=== PATIENT | female | born 1935 | race Caucasian/White ===

== ENCOUNTER 2022-07-04 08:44 | Day surgery (SDC) | payer OTHER, MEDICARE ==
[2022-07-04] MEDS ORDERED: ZOLEDRONIC ACID/MAN/WATER 5 MG/100 ML INFUS..BTL IVPB ONE (10:00)
[2022-07-04 14:31] VITALS: RESP 18; TEMP 97.9
[2022-07-04 15:06] VITALS: BP 130/69; PULSE 57
== END 2022-07-04 11:00 | disposition home or self-care (01) ==
LOC: JERBED 08:44 → JINFUSION 08:44 → J7W 08:48 → JINFUSION 11:00
PROVIDERS: ATTEND Family Medicine
PROC: 3E033GC Introduction of Other Therapeutic Substance into Peripheral Vein, Percutaneous Approach (ICD-10-PCS; principal; 2022-07-04)
DX: M81.8 Other osteoporosis without current pathological fracture (principal)
CPT/HCPCS: 96365; J3489

== ENCOUNTER 2023-06-21 15:36 | Emergency (ER) | payer OTHER, MEDICARE ==
[2023-06-21 15:54] VITALS: BP 182/90; PULSE 62; RESP 18; TEMP 98; BMI 23.5
[2023-06-21] MEDS ORDERED: SODIUM CHLORIDE 1,000 ML IV ONE (16:22)
[2023-06-21] MEDS ORDERED: ONDANSETRON 4 MG/2 ML VIAL IVPB ONE (16:22)
[2023-06-21] MEDS ORDERED: ONDANSETRON 4 MG/2 ML VIAL ONE (16:36)
[2023-06-21 17:12] LABS: HEMATOCRIT 40.8 % (32.4-45.2); HEMOGLOBIN 14.1 G/dL (10.7-15.3); MCH 32.3 pg (25.7-33.7); MCHC 34.5 g/dl (32.0-36.0); MEAN CELL VOLUME 93.6 fl (80-96); MEAN PLT VOLUME 8.4 fl (7.5-11.1); PLATELET COUNT 152.9 10^3/uL (134-434); RBC 4.36 10^6/uL (3.60-5.2); WHITE BLOOD COUNT 4.2 10^3/uL (4.0-10.8)
[2023-06-21 17:33] LABS: ALBUMIN 4.1 g/dl (3.4-5.0); BILIRUBIN,TOTAL 0.6 mg/dl (0.2-1); CALCIUM 8.8 mg/dl (8.5-10.1); CREATININE 0.7 mg/dl (0.6-1.3); TOT PROT 6.7 g/dl (6.4-8.2)
[2023-06-21 18:16] LABS: PLATELET ESTIMATE ADEQUATE
== END 2023-06-21 18:35 | disposition home or self-care (01) ==
LOC: FER 15:36
PROC: 3E033GC Introduction of Other Therapeutic Substance into Peripheral Vein, Percutaneous Approach (ICD-10-PCS; principal; 2023-06-21)
PROC: 3E0337Z Introduction of Electrolytic and Water Balance Substance into Peripheral Vein, Percutaneous Approach (ICD-10-PCS; 2023-06-21)
DX: R09.81 Nasal congestion (principal); R05.9 Cough, unspecified; R53.81 Other malaise; R63.0 Anorexia; J11.1 Influenza due to unidentified influenza virus with other respiratory manifestations; E87.1 Hypo-osmolality and hyponatremia; Z20.822 Contact with and (suspected) exposure to COVID-19
CPT/HCPCS: 0241U-QW; 36415; 71046-TC-FY; 80053; 84484; 85027; 93005; 99285-25

== ENCOUNTER 2023-06-27 12:38 | Emergency (ER) | payer OTHER, MEDICARE ==
[2023-06-27 12:57] VITALS: RESP 18; BMI 23.5
[2023-06-27] MEDS ORDERED: SODIUM CHLORIDE 0.9% 500 ML INFUS.BAG IV ONE ×2 (13:19→14:15)
[2023-06-27 13:44] LABS: ALBUMIN 4.4 g/dl (3.4-5.0); BILIRUBIN,TOTAL 0.7 mg/dl (0.2-1); CALCIUM 9.6 mg/dl (8.5-10.1); CREATININE 0.8 mg/dl (0.6-1.3); MAGNESIUM 1.8 mg/dL (1.8-2.4); PHOSPHOROUS 3.7 (2.5-4.9); POTASSIUM 4.3 mmol/L (3.5-5.1); TOT PROT 6.9 g/dl (6.4-8.2)
[2023-06-27 13:50] LABS: HEMATOCRIT 42.3 % (32.4-45.2); HEMOGLOBIN 14.6 G/dL (10.7-15.3); MCH 32.3 pg (25.7-33.7); MCHC 34.4 g/dl (32.0-36.0); MEAN PLT VOLUME 7.9 fl (7.5-11.1); RDW 13.5 % (11.6-15.6); WHITE BLOOD COUNT 8.4 10^3/uL (4.0-10.8)
[2023-06-27 14:07] LABS: PLATELET ESTIMATE ADEQUATE
[2023-06-27 14:31] VITALS: BP 144/75; TEMP 97.9
[2023-06-27 14:34] VITALS: PULSE 61
== END 2023-06-27 15:41 | disposition home or self-care (01) ==
LOC: FER 12:38
DX: R53.1 Weakness (principal); Z20.822 Contact with and (suspected) exposure to COVID-19
CPT/HCPCS: 0241U-QW; 36415; 71046-TC-FY; 80053; 81003; 81015; 83735; 84100; 84443; 84484; 85027; 87086; 93005; 99285-25